=== PATIENT | female | born 1950 | race Caucasian/White ===

== ENCOUNTER 2023-09-11 09:03 | Outpatient (CLI) | payer MEDICARE, BC, SELFPAY | END 2023-09-11 09:04 | disposition home or self-care (01) | PROVIDERS: PCP Nurse Practitioner Family; Visit Provider Nurse Practitioner Family | DX: Z01.818 Encounter for other preprocedural examination (principal); E03.9 Hypothyroidism, unspecified; E78.5 Hyperlipidemia, unspecified | CPT/HCPCS: 80048; 80061; 84439; 84443 ==

== ENCOUNTER 2023-10-04 06:05 | Day surgery (SDC) | payer MEDICARE, BC, SELFPAY ==
[2023-10-04] VITALS (23 sets, daily range): BP systolic 84–153; BP diastolic 41–82; PULSE 42–72; RESP 12–18; TEMP 35.2–36.8; O2SAT 95–100; BMI 31.6
[2023-10-04] MEDS: LACTATED RINGERS 1000 ML 1,000 ML 100 ML IV (06:05)
[2023-10-04] MEDS: OXYCODONE (CR) 10 MG TAB.ER.12H PO (06:46)
[2023-10-04] MEDS: CELECOXIB 200 MG CAPSULE PO (06:46)
[2023-10-04] MEDS: ACETAMINOPHEN 500 MG TABLET 1000 MG PO ×3 (06:46→17:06)
[2023-10-04] MEDS: SODIUM CHLORIDE 0.9 % (FLUSH) 10 ML SYRINGE IVF (06:47)
[2023-10-04 06:59] LABS: INR 1.23 (0.91-1.10); Prothrombin Time 16.3 Seconds
[2023-10-04] MEDS: fentaNYL 100 MCG/2 ML inj IVP (07:14)
[2023-10-04] MEDS: MIDAZOLAM HCL 1 MG/ML inj IVP (07:14)
--- NOTE | 2023-10-04 07:24 | SUR.PREOP ---
TIME?OUT:?12 PT/RN/MDA?VERIFICATION?OF?SURGICAL?SITE Left Knee,?PROCEDURE Adductor Canal Block,?AND?CONSENT OBTAINED?PRIOR?TO?INVASIVE?PROCEDURE.
[2023-10-04] MEDS: CEFAZOLIN 2 GM INJ IVP (07:44)
[2023-10-04] MEDS: TRANEXAMIC ACID 100 MG/ML INJ 1000 MG IV (07:45)
--- NOTE | 2023-10-04 08:50 | CRLHL7_ITS ---
For Patients: As a result of the Cures Act, medical imaging exams and procedure reports are released immediately into your electronic medical record. You may view this report before your referring provider. If you have questions, please contact your health care provider. Indication: Left knee arthroplasty Technique: Left knee 2 view Findings: Hardware from a left knee arthroplasty is in satisfactory position. Bone alignment is normal. No sign of acute fracture. There are postoperative changes in the soft tissues. Dictated by Morteza Mccoy MD @ 10/05/2023 10:54:58 AM (Electronically Signed)
--- NOTE | 2023-10-04 08:52 | PM.ORPRC ---
Procedure Note Date of procedure: 10/04/23 Procedure: PREOPERATIVE DIAGNOSIS: Left knee osteoarthritis POSTOPERATIVE DIAGNOSIS: Left knee osteoarthritis NAME OF OPERATION: Left total knee arthroplasty SURGEON: Rick Bui MD CATH LAB: Chanell Hong PA-C ANESTHESIA: Spinal ESTIMATED BLOOD LOSS: 0 mL COMPLICATIONS: None SPECIMENS: None DRAINS: None PREOPERATIVE ANTIBIOTICS: Ancef 2 grams IMPLANTS: 1. J&J Attune # 5 posterior stabilized femur 2. # 4 fixed-bearing tibia 3. # 5 posterior stabilized, 12 mm fixed-bearing polyethylene 4. 35 patella INDICATIONS: The patient is a 73-year-old with a longstanding history of severe, unrelenting left knee pain secondary to end-stage (grade IV) left knee osteoarthritis. Despite appropriate nonoperative management, including activity modification, anti-inflammatories, [id number] pain medication, bracing, physical therapy, and injections they continue to have pain and disability. Operative intervention was offered. The risks, benefits and expected outcomes were discussed in detail. These included but were not limited to: Infection, bleeding, injury to blood vessel or nerve, venous thromboembolism. All questions were answered to their satisfaction. Use of an administrative sales assistant was necessary throughout the case for patient positioning and safety, soft tissue retraction, and closure. PROCEDURE: Spinal anesthesia was administered. The patient was placed supine on the operating table. The administrative sales assistant made sure the patient was positioned appropriately. The lower extremity was prepped and draped in the usual sterile fashion. The limb was exsanguinated with the [place] bandage. The pneumatic tourniquet was inflated to 300 mmHg. A standard anterior incision was made with the knee in flexion. Subcutaneous dissection was sharply taken through fascial layer #1. Full-thickness medial and lateral flaps were elevated. The administrative sales assistant retracted the soft tissues and protected them throughout the case. A standard medial parapatellar approach was made. The patella was everted. The infrapatellar fat pad was preserved. The menisci and cruciate ligaments were sharply d?brided. Marginal osteophytes were d?brided with the rongeur. The drill was used to penetrate the femoral canal. The canal was aspirated and irrigated with pulse lavage. The intramedullary femoral guide was placed for a 5-degree valgus cut, removing 10 mm off the distal femur. The saw was used to make the cut. Whites[place] line and the trans epicondylar axis were marked. The femoral sizing guide was pinned onto the distal femur. Three degrees of external rotation nicely parallels the transepicondylar axis. Pins were placed for posterior referencing. The four-in-one cutting guide was pinned onto the distal femur. The anterior, posterior, and chamfer cuts were made. The administrative sales assistant protected the collateral ligaments. The box cutting guide was pinned. The box cuts were made. The boxed trial was placed and was an excellent fit. Drill holes for the lugs were made. Attention was then turned to the proximal tibia. The extramedullary tibial guide was placed for a neutral varus/valgus cut with 5 degrees of posterior slope, removing 1 mm based off the medial tibial surface. The administrative sales assistant protected the collateral ligaments and the neurovascular bundle. The saw was used to make the cut. Trial components were placed. The knee was nicely balanced in both flexion and extension. The trial components were removed. The tray was placed in appropriate rotation, parallel to our tibial cutting pins. It was pinned by the administrative sales assistant and the drill and the punch were used. The tray was removed. The punch was used again. We placed a bone plug in the femoral canal. Attention was then turned to the patella. [place] patellar thickness was 21 mm. The lobster claw resection guide was used with the 7.5 mm tina. The saw was used to make the cut. Drill holes were made by the administrative sales assistant. The trial was placed and was an excellent fit. Cancellous surfaces were irrigated with pulse lavage and thoroughly dried by the administrative sales assistant. We cemented the tibial component, then the femoral component. We impacted the 12 mm polyethylene onto the tibial tray. The knee was brought into full extension. We then cemented the patellar component. Excessive cement was removed. The cement was allowed to harden. The knee was taken through a range of motion and was found to be nicely balanced in both flexion and extension. The patella tracks centrally. The administrative sales assistant did a three minute dilute Betadine solution soak. The administrative sales assistant irrigated the wound with 3 liters of normal saline via pulse lavage. The administrative sales assistant reapproximated the extensor mechanism with #1 Vicryl in an interrupted [id number] fashion. The administrative sales assistant then ran the extensor mechanism with a #1 PDO Stratafix. The administrative sales assistant closed the subcutaneous tissues with a 3-0 Stratafix and the skin with a running 3-0 Stratafix in a subcuticular fashion. Glue was used to seal the skin. The administrative sales assistant placed a dry dressing, RENETTA stocking, and Polar Care. Sponge and needle counts were correct x2. The patient tolerated the procedure well. There were no apparent complications. They were carefully transferred to the hospital bed and taken to the postanesthesia care unit in satisfactory condition. PLAN: The patient will be mobilized with physical therapy. Her usual dose of Coumadin can be restarted. They will be discharged to home once medically appropriate.
[2023-10-04] MEDS: ePHEDrine sulfate 5 MG/ML inj IVP (09:40)
--- NOTE | 2023-10-04 09:42 | W.ANESCHARGE ---
Anesthesia Charges Start Date/Time Anesthesia Start Date: 10/04/23 Anesthesia Start Time: 07:38 Stop Date/Time Anesthesia Stop Date: 10/04/23 Anesthesia Stop Time: 09:40
[2023-10-04] MEDS: LACTATED RINGERS 1000 ML 1,000 ML 35 ML IV (09:47)
--- NOTE | 2023-10-04 10:04 | W.ANESCHARGE ---
Anesthesia Charges Start Date/Time Anesthesia Start Date: 10/04/23 Anesthesia Start Time: 07:38 Stop Date/Time Anesthesia Stop Date: 10/04/23 Anesthesia Stop Time: 09:40 Summary Extremes of Age - Over 70 or under 1: MDA
--- NOTE | 2023-10-04 10:05 | P.NB_ITS ---
Nerve Block Nerve Block Time Seen by Provider: 07:20 Date Seen: 10/04/23 Type of block requested by surgeon for post-operative analgesia: adductor canal Side: left Time out performed: Yes Verification of patient name: Yes Verification of date of : Yes Site marking: site marked Name of person performing procedure: Prieto Continuous monitoring Was continuous monitoring of O2 sat, B/P, space technologist, recorded every 15 minutes?: Yes Procedure Checklist: sterile prep, needles and gloves Ultrasound guided. Images saved: Yes Medications given in 5ml increments after negative aspiration: Ropivicaine %: 0.5 mL: 20 Needle gauge: 20 Decadron (mg): 10 Precedex (mcg): 25 Patient tolerated procedure well: Yes Additional comments: Needle noted adjacent to nerve Block Charges Block Charge (with Pro Fee): Femoral Nerve Use of Ultrasound Machine for Block: Yes- US Guidance/pain block
--- NOTE | 2023-10-04 10:06 | P.NB_ITS ---
Nerve Block Nerve Block Time Seen by Provider: 07:20 Date Seen: 10/04/23 Type of block requested by surgeon for post-operative analgesia: geniculars Side: left Time out performed: Yes Verification of patient name: Yes Verification of date of : Yes Site marking: site marked Name of person performing procedure: Prieto Continuous monitoring Was continuous monitoring of O2 sat, B/P, staple fiber washer, recorded every 15 minutes?: Yes Procedure Checklist: sterile prep, needles and gloves Medications given in 5ml increments after negative aspiration: Ropivicaine %: 0.5 mL: 9 Needle gauge: 25 Patient tolerated procedure well: Yes Block Charges Block Charge (with Pro Fee): Genicular Nerve Block Use of Ultrasound Machine for Block: No
--- NOTE | 2023-10-04 11:33 | PM.IMCN1 ---
Date of Consult Patient: [facility] Patient Consult date: 10/04/23 Requesting Physician: Orthopedics Primary Care Provider: Sowmya Campos CNP Consult Narrative Narrative: Birdie Canales is a 73 year old female admitted to the hospital for left total knee arthroplasty. Procedures performed today by Dr. Bui. No operative complications. Postoperatively she reports doing well. No significant knee pain. Her spinal anesthesia has worn off though her regional femoral block is still effective. She has no nausea. No lightheadedness. She reports being well recently with no recent illness. No concerns at her preop physical other than anticoagulation. She has a history of factor 5 Leiden mutation. By her history it sounds like she might have homozygous condition for this. It runs in her family and she thinks 3 of her siblings are heterozygous and she and a brother are homozygous. Both of them have had previous DVTs. She has had 2 previous unprovoked DVTs. She took her last dose of warfarin 5 days ago on Sunday. She has been bridged with Lovenox 80 mg subQ twice daily. The last dose of that was yesterday morning. Her normal dose of warfarin is 7.5 mg 4 days a week and 3.75 mg 3 days a week. She has also had a recent change in her levothyroxine dose. Previously was on 75 mcg daily. TSH was 9.2 with a free T4 of 1.5. Her levothyroxine was increased to 88 mcg daily about 3 weeks ago. Nurse's note low blood pressure and bradycardia. Pulses in the 40s. It has been in the 40s all morning. Preoperatively she had an EKG which showed sinus bradycardia with a pulse of 57. Review of Systems Narrative: Patient reports feeling well except as noted above. She has no other concerns. [facility] Medical History (Updated 10/04/23 @ 12:15 by Ji Escobar MD) Osteoarthritis of left knee ?M17.12 - Unilateral primary osteoarthritis, left knee (ICD-10) Factor 5 Leiden mutation, heterozygous ?D68.51 - Activated protein C resistance (ICD-10) Monitoring for anticoagulant use ?Z51.81 - Encounter for therapeutic drug level monitoring (ICD-10) ?Z79.01 - terminal worker (current) use of anticoagulants (ICD-10) Deep vein thrombophlebitis of right leg ?I80.201 - Phlebitis and thrombophlebitis of unspecified deep vessels of right lower extremity (ICD-10) Hyperlipidemia ?E78.5 - Hyperlipidemia, unspecified (ICD-10) Hypothyroidism ?E03.9 - Hypothyroidism, unspecified (ICD-10) Surgical History (Updated 10/04/23 @ 12:13 by Ji Escobar MD) History of total knee arthroplasty (04/18/12) ?Z96.659 - Presence of unspecified artificial knee joint (ICD-10) Social History (Updated 10/04/23 @ 12:11 by Ji Escobar MD) Narrative: She lives in [place] with her . They live in a town home where she has 1 small step to get into the house and then lives on 1 level. What is your current living situation?: I presently have a place to live Problems where you live: no known problems In the past 12 months, utilities in danger of being shut off: no In past 12 months, lack of transportation kept you from medical appts, meetings, work, or getting things needed for daily living: no How hard is it for you to pay for the very basics like food, housing, medical care, and heating: not very hard In the past 12 mos, have been you worried that your food would run out before you had money to buy more?: never true In the past 12 mos, the food you bought just didn't last and you didn't have money to buy more?: never true Smoking Status: Never smoker How often do you have a drink containing alcohol: 4 or more times a week Alcohol type: wine How many standard drinks containing alcohol do you have on a typical day: 1 or 2 How often do you have six or more drinks on one occasion: Daily or almost daily AUDIT-C Alcohol total score: 8 Non-prescribed substance use: denies use Caffeine: No How often does anyone, including family, friends and others, physically hurt you: never How often does anyone, including family, friends and others, insult or talk down to you: never How often does anyone, including family, friends and others, threaten you with harm: never How often does anyone, including family, friends and others, scream or curse at you: never Little interest or pleasure in doing things: not at all Feeling down, depressed, or hopeless: not at all Meds Home Medications and Allergies Home Medications Medication Instructions Recorded Confirmed Type cholecalciferol (vitamin D3) 50 50 mcg PO QDAY 04/17/23 10/04/23 History mcg (2,000 unit) capsule metronidazole 0.75 % topical gel 1 applic topical BID 04/17/23 10/04/23 History warfarin 7.5 mg tablet 3.75 - 7.5 mg PO DAILY 10/04/23 10/04/23 History Allergies Allergy/AdvReac Type Severity Reaction Status Date / Time Sulfa (Sulfonamide Allergy Mild Rash Verified 10/04/23 06:24 Antibiotics) Exam Narrative: Exam Narrative: She is alert pleasant and in no distress. Speech is normal. Oropharynx with small airway. Neck is supple without mass or adenopathy. Respirations are clear to auscultation. Cardiovascular: S1, S2, regular bradycardia. No murmur gallop or rub. Abdomen: Bowel sounds are present. Abdomen is soft without tenderness or mass. Lower extremities bilaterally without edema and intact pulses, sensation, motion. Const: Vital Signs, click to edit/add: Vital Signs - 24 hr 10/04/23 06:32 10/04/23 07:14 10/04/23 07:20 Temperature 98.2 F Pulse Rate 58 L 48 L 49 L Respiratory Rate 16 16 16 Blood Pressure 147/79 H 153/68 H 151/76 H Pulse Oximetry 98 98 97 Oxygen Delivery Me thod Room Air Nasal Cannula Nasal Cannula Oxygen Flow Rate 2 2 10/04/23 07:30 10/04/23 07:30 10/04/23 09:35 Temperature 97.3 F L Pulse Rate 47 L 47 L 50 L Respiratory Rate 16 16 12 Blood Pressure 122/65 97/54 L 85/52 L Pulse Oximetry 97 97 96 Oxygen Delivery Me thod Nasal Cannula Nasal Cannula Room Air Oxygen Flow Rate 2 2 10/04/23 09:40 10/04/23 09:45 10/04/23 09:50 Temperature Pulse Rate 49 L 47 L 46 L Respiratory Rate 14 12 12 Blood Pressure 84/61 L 91/62 95/71 Pulse Oximetry 96 99 95 Oxygen Delivery Me thod Oxygen Flow Rate 10/04/23 09:55 10/04/23 10:00 10/04/23 10:05 Temperature 97.3 F L Pulse Rate 45 L 50 L 47 L Respiratory Rate 12 14 14 Blood Pressure 93/74 100/58 L 97/57 L Pulse Oximetry 97 100 98 Oxygen Delivery Me thod Room Air Oxygen Flow Rate Documenting provider has reviewed patient's vital signs: yes Assessment and Plan Assessment and plan (1) S/P knee replacement: Problem comment: Left total knee arthroplasty by Dr. Bui without complications Status: Acute (2) Factor 5 Leiden mutation, heterozygous: Problem comment: May be homozygous. Previous history of 2 unprovoked clots. Discuss postoperative VTE prophylaxis with surgery. Status: Acute (3) Monitoring for anticoagulant use: Problem comment: Restart warfarin 7.5 mg daily Status: Acute (4) Hypothyroidism: Problem comment: Check TSH in 3 weeks Status: Acute (5) Sinus bradycardia: Problem comment: Asymptomatic. Monitor Status: Acute (6) Postoperative hypotension: Problem comment: Resolved after 500 mL bolus of LR Status: Acute Plan Continue in hospital for ongoing monitoring of vital signs, bleeding, routine physical therapy and pain management and initiation of appropriate anticoagulation Total time spent today is 45 minutes, 30 minutes in coordination of care and discussing with patient and other providers postoperative care and anticoagulation
[2023-10-04] MEDS: OXYCODONE 5 MG TABLET PO ×3 (11:44→23:05)
[2023-10-04] MEDS: LACTATED RINGERS 1000 ML 1,000 ML 75 ML IV (12:12)
[2023-10-04] MEDS: CEFAZOLIN 2 GM in 0.9 % SODIUM CHLORIDE Mini-bag 100 ML IVPB ×2 (13:38→23:03)
[2023-10-04] MEDS: ONDANSETRON 2 MG/ML inj 4 MG IVP (15:49)
[2023-10-04] MEDS: WARFARIN 2.5 MG TABLET 7.5 MG PO (17:05)
--- NOTE | 2023-10-04 20:03 | PC.NURSE ---
shift note: pt up 1/walker with steady gait. pt medicated x1 for pain to lt knee. cryo cuff in place. PP+ bilat and cap refill intact. vss stable.
[2023-10-04] MEDS: SENNOSIDES 1 TAB TABLET 2 TAB PO (23:04)
[2023-10-05] MEDS: ACETAMINOPHEN 500 MG TABLET 1000 MG PO ×2 (00:26→06:50)
[2023-10-05] MEDS: LACTATED RINGERS 1000 ML 1,000 ML 75 ML IV (01:43)
[2023-10-05 03:00] VITALS: BP 112/73; PULSE 50; RESP 18; TEMP 36.1; O2SAT 96
[2023-10-05] MEDS: OXYCODONE 5 MG TABLET PO ×2 (05:58→08:12)
[2023-10-05 06:49] LABS: Hematocrit 40.1 % (33.0-51.0); Hemoglobin* 13.2 gm/dL (12.0-16.0); Immature Granulocytes Abs Auto 0.02 K/uL (0.00-0.30); Immature Granulocytes Pct Auto 0.2 %; Lymphocytes Percent Auto 14.5 % (20-44); Mean Corpuscular HGB Conc 33 gm/dL (32-36); Mean Corpuscular Hemoglobin 29 pg (26-34); Mean Corpuscular Volume 88 fL (80-100); Neutrophils Percent Auto 75.3 % (42.0-72.0); Platelet Count* 172 K/uL (140-440); RDW Coefficient of Variation % 13.1 % (11.5-15.5); Red Blood Count 4.55 m/uL (4.00-5.20); White Blood Count* 8.91 K/uL (4.50-11.00)
[2023-10-05 06:56] LABS: Slide Review Reflex No
[2023-10-05 07:00] VITALS: BP 127/84; PULSE 50; RESP 18; TEMP 36.6; O2SAT 99
[2023-10-05 07:03] LABS: INR 1.13 (0.91-1.10); Prothrombin Time 15.2 Seconds
[2023-10-05 07:07] LABS: Potassium* 4.5 mmol/L (3.6-5.1); Sodium* 132 mmol/L (135-149)
[2023-10-05 07:10] LABS: Blood Urea Nitrogen* 14 mg/dL (7-30); Creatinine* 0.6 mg/dL (0.5-1.5); Est. Creatinine Clearance* 43.91; Estimated Glomerular Filt Rate 95 ml/min
--- NOTE | 2023-10-05 07:14 | PC.NURSE ---
Patient pleasant, alert and oriented. Ambulates with walker, gait belt and assist of one. Rated left thigh and knee pain 3-6/10. PRN Oxycodone and scheduled Tylenol given. Dressing clean, dry and intact. IV saline locked. Hematoma noted to left forearm d/t prior IV attempt. Warm packs applied. PA updated.
[2023-10-05] MEDS: SENNOSIDES 1 TAB TABLET 2 TAB PO (08:11)
--- NOTE | 2023-10-05 08:45 | PM.ORPN ---
Subjective Subjective Time Seen by Provider: 08:45 Date Seen: 10/05/23 Principal diagnosis: Left knee replacement Interval history: Angela is comfortable in bed this morning. Her Baldev will be assisting her at home. She has a son that is a physical therapist, however he does not live in the area. Ortho Exam Narrative Exam Narrative: Alert and oriented x3. Patient is in no acute distress. Converses without labored breathing. Hearing is grossly intact. Ambulates with a walker. Examination of the left knee shows mild soft tissue edema. Mild effusion. No ecchymosis about the knee. Quad strength 5/5. No erythema or warmth or sign of infection. Bilateral calves are soft and nontender. CMS is intact left lower extremity. Bruising of her left forearm from blood draws and on her abdomen. Const Vital Signs, click to edit/add: Vital Signs - 24 hr 10/04/23 09:35 10/04/23 09:40 10/04/23 09:45 Temperature 97.3 F L Pulse Rate 50 L 49 L 47 L Pulse Rate [Bilateral Pulse Oximeter] Respiratory Rate 12 14 12 Blood Pressure 85/52 L 84/61 L 91/62 Blood Pressure [Left Arm] Pulse Oximetry 96 96 99 Oxygen Delivery Method Room Air Oxygen Flow Rate 10/04/23 09:50 10/04/23 09:55 10/04/23 10:00 Temperature Pulse Rate 46 L 45 L 50 L Pulse Rate [Bilateral Pulse Oximeter] Respiratory Rate 12 12 14 Blood Pressure 95/71 93/74 100/58 L Blood Pressure [Left Arm] Pulse Oximetry 95 97 100 Oxygen Delivery Method Oxygen Flow Rate 10/04/23 10:05 10/04/23 10:11 10/04/23 10:15 Temperature 97.3 F L 95.3 F L Pulse Rate 47 L 45 L Pulse Rate [Bilateral Pulse Oximeter] 44 L Respiratory Rate 14 16 16 Blood Pressure 97/57 L Blood Pressure [Left Arm] 94/61 93/56 L Pulse Oximetry 98 98 Oxygen Delivery Method Room Air Room Air Oxygen Flow Rate 10/04/23 10:30 10/04/23 10:45 10/04/23 11:00 Temperature 96.4 F L 96.4 F L Pulse Rate Pulse Rate [Bilateral Pulse Oximeter] 42 L 45 L 44 L Respiratory Rate 18 16 18 Blood Pressure Blood Pressure [Left Arm] 88/59 L 115/64 98/41 L Pulse Oximetry 98 99 97 Oxygen Delivery Method Room Air Room Air Room Air Oxygen Flow Rate 10/04/23 11:30 10/04/23 12:00 10/04/23 13:00 Temperature 96.6 F L 97.0 F L Pulse Rate Pulse Rate [Bilateral Pulse Oximeter] 47 L 46 L 46 L Respiratory Rate 16 16 16 Blood Pressure Blood Pressure [Left Arm] 100/78 117/82 127/74 Pulse Oximetry 97 98 98 Oxygen Delivery Method Room Air Room Air Room Air Oxygen Flow Rate 10/04/23 14:00 10/04/23 15:00 10/04/23 15:00 Temperature 97.4 F L 98.2 F 98.2 F Pulse Rate Pulse Rate [Bilateral Pulse Oximeter] 44 L 72 72 Respiratory Rate 18 18 18 Blood Pressure Blood Pressure [Left Arm] 126/67 112/68 112/68 Pulse Oximetry 99 98 98 Oxygen Delivery Method Room Air Room Air Oxygen Flow Rate 2 10/04/23 19:00 10/04/23 23:00 10/05/23 03:00 Temperature 97.0 F L 97.3 F L 97.0 F L Pulse Rate Pulse Rate [Bilateral Pulse Oximeter] 46 L 47 L 50 L Respiratory Rate 18 18 18 Blood Pressure Blood Pressure [Left Arm] 114/71 109/64 112/73 Pulse Oximetry 96 96 96 Oxygen Delivery Method Room Air Room Air Room Air Oxygen Flow Rate Assessment and Plan Assessment and plan (1) Status post left knee replacement: Problem details: 10/04/2023 Status: Acute Assessment and Plan: Plan for discharge is today to home if they meet discharge criteria. DVT prophylaxis includes Lovenox 40 mg subQ for 4 days along with warfarin, Tera stockings x1 month may remove for 1 hr per day, frequent ambulation. 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 Recheck INR Sunday, family doctor to monitor. Remove dressing in 1 week. Observe wound and phone Orthopedics with any questions or concerns Return to clinic in 1 week for a wound check Return to clinic in 6 weeks with surgeon Minimize narcotic use. Wean off and discontinue soon as possible. Activities as tolerated. No strenuous activity. Outpatient physical therapy as scheduled. Ice and elevate the operative extremity. No restriction on ice.
--- NOTE | 2023-10-05 11:23 | PM.DS1 ---
DS: Providers Provider Date Seen: 10/05/23 Primary care physician: Sowmya Campos CNP Attending Physician on discharge: Rick Bui MD Date of Discharge: 10/05/23 DS: Diagnosis Discharge Diagnosis (1) Factor 5 Leiden mutation, heterozygous: Status: Acute Problem details: May be homozygous. Previous history of 2 unprovoked clots. Discuss postoperative VTE prophylaxis with surgery. Discussed with Dr. Bui a postoperative DVT prophylaxis plan. Will use enoxaparin 40 mg subq daily pending therapeutic INR. She has 80 mg syringes. Will give herself half a syringe or 40 mg daily Check INR on SundayOctober 08. Continue warfarin 7.5 mg daily Sunday, Sunday, Sunday. Additional warfarin dosing depending on INR on Sunday. (2) Sinus bradycardia: Status: Acute Problem details: Asymptomatic. No indication for further evaluation if asymptomatic (3) Status post left knee replacement: Status: Acute Problem details: 10/04/2023 doing well postoperatively DS: Summary Hospital Course Hospital Course: 73-year-old female admitted to the hospital for left knee arthroplasty. Procedures performed by Dr. Bui without complications. Postoperatively she is doing well. I discussed with patient and orthopedic providers a plan of care going forward for VTE prophylaxis. She reports 2 previous unprovoked DVTs and factor 5 Leiden mutation, possibly homozygous. On that basis she is at increased risk of recurrent DVT. I would recommend enoxaparin prophylaxis until her INR is therapeutic. She will take enoxaparin 40 mg subcutaneously daily for the next 3 days pending INR on Sunday. She will also take warfarin 7.5 mg daily pending INR on Sunday. Contact primary care provider, Sowmya Campos CNP on Sunday with results of INR. Status at Discharge Functional status at discharge: uses cane/walker Overall status at discharge: patient is progressing back to baseline Time Spent with Patient Time attestation: Total time spent providing and/or coordinating discharge services: Time spent: Less than 30 minutes Exam Narrative: Exam Narrative: She is alert and appears in no distress. She is tolerating therapy fairly well. Breathing is unlabored. No significant edema. Const: Vital Signs, click to edit/add: Vital Signs - 24 hr 10/04/23 11:30 10/04/23 12:00 10/04/23 13:00 Temperature 96.6 F L 97.0 F L Pulse Rate [Bilate ral Pulse Oximeter ] 47 L 46 L 46 L Respiratory Rate 16 16 16 Blood Pressure [Le ft Arm] 100/78 117/82 127/74 Pulse Oximetry 97 98 98 Oxygen Delivery Me thod Room Air Room Air Room Air Oxygen Flow Rate 10/04/23 14:00 10/04/23 15:00 10/04/23 15:00 Temperature 97.4 F L 98.2 F 98.2 F Pulse Rate [Bilate ral Pulse Oximeter ] 44 L 72 72 Respiratory Rate 18 18 18 Blood Pressure [Le ft Arm] 126/67 112/68 112/68 Pulse Oximetry 99 98 98 Oxygen Delivery Me thod Room Air Room Air Oxygen Flow Rate 2 10/04/23 19:00 10/04/23 23:00 10/05/23 03:00 Temperature 97.0 F L 97.3 F L 97.0 F L Pulse Rate [Bilate ral Pulse Oximeter ] 46 L 47 L 50 L Respiratory Rate 18 18 18 Blood Pressure [Le ft Arm] 114/71 109/64 112/73 Pulse Oximetry 96 96 96 Oxygen Delivery Me thod Room Air Room Air Room Air Oxygen Flow Rate 10/05/23 07:00 Temperature 97.8 F Pulse Rate [Bilate ral Pulse Oximeter ] 50 L Respiratory Rate 18 Blood Pressure [Le ft Arm] 127/84 Pulse Oximetry 99 Oxygen Delivery Me thod Room Air Oxygen Flow Rate Documenting provider has reviewed patient's vital signs: yes DS: Data Data Completed and Pending Labs on day of discharge: Labs from last 24 hours 10/05/23 06:13 WBC 8.91 RBC 4.55 Hgb 13.2 Hct 40.1 MCV 88 MCH 29 MCHC 33 RDW Coeff of Aditya 13.1 Plt Count 172 Neut % (Auto) 75.3 H Lymph % (Auto) 14.5 L [place] % (Auto) 10.0 Eos % (Auto) 0.0 Baso % (Auto) 0.0 Neut # (Auto) 6.70 Lymph # (Auto) 1.30 [place] # (Auto) 0.90 Eos # (Auto) 0.00 Baso # (Auto) 0.00 Abs Immat Gran (auto) 0.02 Imm/Tot Granulo (auto) 0.2 INR 1.13 H Sodium 132 L Potassium 4.5 BUN 14 Creatinine 0.6 Estimated Creat Clear 43.91 Estimated GFR 95 Discharge Plan Discharge Disposition: Home, Self-Care Discharging Surgeon: Rick Bui Follow-Up Appointment: 1 week Prescriptions: New sennosides [Senna Lax] 8.6 mg Tablet 17.2 mg PO BID PRN (Reason: constipation) Qty: 100 0RF acetaminophen 500 mg capsule 500 - 1,000 mg PO Q6H MDD 4000mg per day PRN (Reason: pain) Qty: 100 0RF oxycodone 5 mg Tablet 2.5 - 5 mg PO Q4-6H MDD 6 tabs per day PRN (Reason: Pain) Qty: 42 0RF Rx Instructions: Minimize. Discontinue as soon as possible enoxaparin 80 mg/0.8 mL syringe 40 mg subcut DAILY Qty: 1 0RF Continued metronidazole 0.75 % gel 1 applic topical BID cholecalciferol (vitamin D3) 50 mcg (2,000 unit) capsule 50 mcg PO QDAY simvastatin 10 mg tablet 10 mg PO QPM Qty: 90 3RF levothyroxine 88 mcg tablet 88 mcg PO DAILY Qty: 90 0RF Rx Instructions: patient Changed warfarin 7.5 mg tablet 7.5 mg PO DAILY Qty: 1 0RF Protocol: Dose Management Condition: Sunday Dose/Route: 7.5 mg Instruction: 1 x 7.5 mg tablet Condition: Sunday Dose/Route: 3.75 mg Instruction: 0.5 x 7.5 mg tablets Condition: Sunday Dose/Route: 7.5 mg Instruction: 1 x 7.5 mg tablet Condition: Sunday Dose/Route: 7.5 mg Instruction: 1 x 7.5 mg tablet Condition: Dose/Route: 3.75 mg Instruction: 0.5 x 7.5 mg tablets Condition: Sunday Dose/Route: 7.5 mg Instruction: 1 x 7.5 mg tablet Condition: Sunday Dose/Route: 7.5 mg Instruction: 1 x 7.5 mg tablet Protocol Text: Adjustment Start Date: Sunday08/08/23 INR Value: 2.8 INR Date: 08/07/23 Recheck Date: 09/05/23 Rx Instructions: Take 7.5 mg daily on Sunday, Sunday, Sunday, October 1,2 and 3. Get INR checked on SundayOctober 08. Adjust warfarin dose based on INR. Discontinued enoxaparin [Lovenox] 80 mg/0.8 mL syringe 80 mg subcut Q12H Qty: 8 0RF Activity Level: Activity as Tolerated and No strenuous activity Activity Detail: For anticoagulation in the next 4 days: Take warfarin 7.5 mg every day, Sunday, Sunday, Sunday. Warfarin dose on Sunday should be based on an INR checked on Sunday at the hospital Take Lovenox/enoxaparin 40 mg injected daily in the evening. Use your remaining Lovenox 80 mg syringes and inject half the syringe or 40 mg each day, Sunday, Sunday. You may not need to do a dose on Sunday depending on your INR. Keep dressing on for 1 week. Dressing is waterproof. May shower. Surgical glue covers the wound. Attend outpatient physical therapy if scheduled. Ice and elevate operative extremity without restriction. Swelling and bruising will worsen within the first week. When swelling occurs, elevate the extremity above heart level several times a day and gently massage/pull soft tissue swelling toward hip. This allows gravity to assist in eliminating the swelling/edema. Wear compression stockings for 1 month post surgery to assist in preventing blood clots and to minimize swelling. May remove for 1 hour per day. Ambulate every hour throughout the day. If you drive, Do not drive while taking narcotic pain medication. Do not drink alcohol while taking narcotic pain medication. May drive when safe to do so and have full function of the extremities, this may take 6 weeks or more. Notify Orthopedics with any questions or concerns. ([phone]) Discharge Diet: Regular Patient Instructions: Aspirin (By mouth), Oxycodone, Rapid Release (By mouth), Senna (By mouth), Surgical Site Infections (DC), Knee Replacement (DC) Additional Instructions: Coordinate and Schedule INR Sunday in [place]. Inform patient where she must go for this, whether clinic or hospital. Family doctor to monitor and dose warfarin. Be sure her family doctor is aware of this and aware of her INR drawn on Sunday. Forms: Work/School Release Follow-up: Sowmya Campos CNP [Primary Care Provider] - (INR on SundayOctober 08 at [facility]. Call results to Sowmya Campos CNP) Angela Boswell PA-C [[employer]] - 10/10/23 9:30 am ([facility] [place] Location) Discharge Orders: Discharge Order (Routine); Ordered 10/05/23 Ordered By: Angela Boswell
--- NOTE | 2023-10-05 11:41 | PC.NURSE ---
Discharge: Patient pleasant and cooperative. Vitals stable and WNL. IV removed with catheter intact. Pain managed with PRN medication and cryocuff. Dressing over left knee dry and intact. Worked with PT/OT today. Up with SBA, walker and gait belt. Discharge instructions given to patient and , reviewed follow up and new medications. Patient discharged via wheelchair @ 1038, home with .
== END 2023-10-05 10:38 | disposition home or self-care (01) ==
LOC: OR 06:07 → MEDSURG 06:09
PROVIDERS: Anesthesiology; PCP Nurse Practitioner Family; Visit Provider Orthopaedic Surgery
PROC: (CPT 27447; principal; 2023-10-04 07:30)
DX: M17.12 Unilateral primary osteoarthritis, left knee (principal); G89.18 Other acute postprocedural pain; I95.81 Postprocedural hypotension; R00.1 Bradycardia, unspecified; D68.51 Activated protein C resistance; Z86.718 Personal history of other venous thrombosis and embolism; Z79.01 Long term (current) use of anticoagulants; E03.9 Hypothyroidism, unspecified
CPT/HCPCS: 27447; 01402; 36415; 64447; 64454; 73560; 76942; 82565; 84132; 84295; 84520; 85025; 85610; 97110; 97116; 97161; 97165; 97530; 99100; A9270; C1776; J0690; J1100; J2250; J2405; J2704; J2795; J3010; J7120

== ENCOUNTER 2023-10-08 09:49 | Outpatient (CLI) | payer MEDICARE, BC, SELFPAY ==
[2023-10-08 10:43] LABS: INR 1.89 (0.91-1.10)
== END 2023-10-08 09:50 | disposition home or self-care (01) ==
PROVIDERS: PCP Nurse Practitioner Family; Visit Provider Family Medicine
DX: D68.51 Activated protein C resistance (principal); Z79.01 Long term (current) use of anticoagulants
CPT/HCPCS: 36415; 85610

== ENCOUNTER 2023-12-18 11:11 | Outpatient (CLI) | payer MEDICARE, BC, SELFPAY ==
--- OUTSIDE RECORDS SUMMARY | 2023-12-18 11:13 | XMS_ITS | Clinical Summary ---
Author Name Unknown Organization [email or web address] Address [place], [place] [address] Care Team Providers Care Senior Civil Engineer Name Role Phone Beni Morales MD Unavailable [phone] Allergies Active Allergy Reactions Criticality Noted Date Comments Sulfamethoxazole-Trimethoprim Rash 2008 Medications Medication Sig Dispensed Refills Start Date End Date Status triamcinolone 0.025% topical (ARISTOCORT) 0.025 % creamIndications:Rash Apply topically to affected area(s) 2 times daily. Use for 5-10 days as needed for flares. 80 g 0 10/18/2020 Active cholecalciferol (Vitamin D-3) 2,000 unit capsule Take 1 Capsule (2,000 units) by mouth once daily. 0 07/28/2021 Active simvastatin (ZOCOR) 10 mg tabletIndications:Hype rlipidemia, unspecified hyperlipidemia type Take 1 Tablet (10 mg) by mouth at bedtime. Generic equivalent please 93 tablet. 3 08/10/2022 Active calcium carbonate (Calcium 600) 600 mg calcium (1,500 mg) tablet Take 1 Tablet (600 mg) by mouth two times daily with meals. 0 10/02/2022 Active warfarin (COUMADIN) 7.5 mg tabletIndications:Deep vein thrombophlebitis of right leg (HC),Anticoagulation monitoring, INR range 2-3,Factor 5 Leiden mutation, heterozygous (HC) Take by mouth 3.75 mg (7.5 mg x 0.5) every Mon; 7.5 mg (7.5 mg x 1) all other days in the evening OR as directed 90 Tablet 0 02/21/2023 Active levothyroxine (SYNTHROID) 75 mcg tabletIndications:Hypo thyroidism, unspecified type TAKE 1 TABLET(75 MCG) BY MOUTH BEFORE BREAKFAST 90 Tablet 1 05/11/2023 Active Active Problems Problem Noted Date Diagnosed Date Osteoarthritis of left knee 08/14/2022 Obesity (BMI 30.0-34.9) 03/23/2017 Factor 5 Leiden mutation, heterozygous 2 Overview: DVT x 2, most recently 2009 Hemtatology consult 2010 Osteopenia of multiple sites 06/23/2011 Overview: DEXA 2021 osteopenia Deep vein thrombophlebitis of right leg 03/30/20 10 Overview: Factor V leiden heterozygous DVT x 2, most recently 2009 Hemtatology consult 2010 Other and unspecified hyperlipidemia 07/12/2007 healthcare maintenance 06/04/2007 Overview: Colonoscopy 05/11 - repeat in 10 years Colonoscopy 09/2017 normal repeat in 10 years Unspecified hypothyroidism 05/30/2007 Resolved Problems Problem Noted Date Diagnosed Date Resolved Date Anticoagulation monitoring, INR range 2-3 04/15/2011 06/20/2023 Immunizations Name Administration Dates Next Due AMB INFLUENZA IIV3 (AGE 65+ YRS) PF (Flu Clinic Only) 09/10/2018 AMB Influenza, IIV3 (Age >=3 years)(Flu Clinic Only) 08/16/2011 Amb Influenza, Inactivated A IIV4 (Age 65+ Years) Preserv Free 08/18/2020 Influenza, High-dose Inactivated 07/24/2016 Influenza, IIV3 (Age >=3 years) 08/27/20 13,08/16/2011,08/11/2010,2008,10/03/2007 Influenza, IIV4 07/30/2015,07/28/2014 Influenza, Inactivated AIIV4 (Age 65+ Years) Preserv Free 08/10/2022 Influenza, Inactivated IIV3 (Age 65+ Years) Preserv Free 07/17/2019,09/07/2017 Pneumococcal Poly,23-Valent (Pneumovax) 03/22/2017 Pneumococcal conj 13-Valent (Prevnar 13) 02/28/2016 Tdap 02/28/2017,11/02/2008 Zoster (Shingrix-RZV, recombinant) 04/03,04/03/2019,01/05/2019,2018 Zoster (Zostavax-ZVL, live) 01/26/2015 Family History Medical History Relation Name Comments Hypertension Father Other Father Dementia/alzhei mers Cancer-colon Maternal Grandmother Heart Disease Paternal Grandfather Cancer-breast No Family History Relation Name Status Comments Brother 1 Alive Brother 2 Alive Daughter Alive Adopted Father Alive Maternal Grandmother Mother Alive Paternal Grandfather Sister 1 Alive Sister 2 Alive Son 1 Alive Son 2 Alive Social History Tobacco Use Types Packs/Day Years Used Date Smoking Tobacco: Never Smokeless Tobacco: Never Tobacco Cessation:Counseling Given: Yes Alcohol Use Standard Drinks/Week Comments Yes 0 (1 standard drink = 0.6 oz pur e alcohol) occasional wine PHQ-2 Answer Date Recorded PHQ-2 TOTAL SCORE 0 08/10/2022 Social Connections Answer Date Recorded Frequency of Communication with Friends and Fami ly Not on file 08/13/2023 Financial Resource Strain Answer Date R ecorded Difficulty of Paying Living Expenses 3 08/09/2022 Difficulty of Paying Living Expenses Not on file 08/09/2022 Food Insecurity Answer Date Recorded Worried About Running Out of Food in the Last Ye ar 1 08/09/2022 Transportation Needs Answer Date Record ed Lack of Transportation (Medical) 1 08/09/2022 Housing Stability Answer Date Recorded Unable to Pay for Housing in the Last Year 1 08/09/2022 Sex and Gender Information Value Date Recorded Sex Assigned at Not on file Gender Identity Not on file Sexual Orientation Not on file Obstetrics History Para Term AB IAB SAB Ectopic Multiple Livin g Live Births 2 2 2 0 0 0 0 0 0 2 Date Outcome GA Total Labor Labor/2nd/3rd Weight Sex Delivery Anes PTL Tonya A1 A5 Name Cl in Term Term Last Filed Vital Signs Vital Sign Reading Time Taken Comments Blood Pressure 136/84 08/10/2022 3:04 PM CDT Pulse 71 08/10/2022 3:04 PM CDT Temperature 36.9 ??C (98.4 ??F) 11/13/2019 1:55 PM CS T Respiratory Rate - - Oxygen Saturation 98% 08/10/2022 3:04 PM CDT Inhaled Oxygen Concentration - - Weight 81.9 kg (180 lb 9.6 oz) 08/10/2022 3:04 P M CDT Height 163.6 cm (5' 4.41) 08/10/2022 3:04 PM CD T Body Mass Index 30.61 08/10/2022 3:04 PM CDT Plan of Treatment Health Maintenance Due Date Last Done Comments COVID-19 vaccine series ( season) 2023 09/14/2021, 02/03/2021, 01/06/2021 Influenza for age 65+ 07/06/2023 08/10/2022 , 08/18/2020, 07/17/2019, Additional history exists BMI (ht and wt on same day) for age 18+ 08/10/2023 08/10/2022, 07/28/2021, 06/16/2020, Additional history exists Depression screening for age 12+ 08/10/2023 08/10/2022, 07/28/2021, 06/16/2020, Additional history exists Medicare Wellness for age 65+ 08/11/2023, 07/28/2021, 06/16/2020, Additional history exists Mammogram for age 45-75 09/29/2023 09/29/20 22, 07/28/2021, 07/13/2020, Additional history exists Tetanus booster 02/28/2027 02/28/2017, 11/02/2008 Lipids for age 45-75 07/31/2027 07/31/2022, 07/13/2021, 05/21/2020, Additional history exists Colonoscopy through age 75 09/17/202709/17, 09/17/2017, 06/03/2007 (Completed outside of [facility]) Tdap Completed 02/28/2017, 11/02/2008 Pneumococcal series for age 65+ Completed 7, 02/28/2016 Zoster (shingles) series for age 50+ Completed 04/03/2019, 04/03/2019, 01/05/2019, Additional history exists Hepatitis C screening for ag e 18-79 Completed 07/13/2020 DEXA/DXA scan for age 65+ Completed 2021, 03/09/2016, 12/03/2008 Advance Directives Documents on File Type Date Recorded Patient Parachute Packer Expl anation Power of Methods Engineer 07/11/2016 10:32 AM JONI KATZ POWER OF FREIGHT BRAKE OPERATOR, [facility],06/14/2014 Healthcare Directive 07/11/2016 10:29 AM ELO DEVI, [facility], 06/14/2014 Care Teams Senior Civil Engineer Relationship Specialty Start Date End Date Beni Morales MD [address] [place] [id number] Surgery - Orthopedics 02/28/16
--- NOTE | 2023-12-18 11:30 | MM_ITS ---
Patient: CULLEN CHOW Facility:?[facility] Patient ID:?[id number] Site Patient ID:?[id number]. Site :?[id number] Study:?XRay-Breast Bilateral 3D W/CAD-12/18/2023 10:03:25 AM Ordering Physician:Sowmya Almendarez Final Report: BILATERAL SCREENING MAMMOGRAM WITH COMPUTER-AIDED DETECTION AND TOMOSYNTHESIS TECHNIQUE: CC and MLO views were obtained. These mammographic images have been obtained using full-field digital technique. These mammographic images were interpreted with the benefit of computer-aided detection. Breast Tomosynthesis was used in this interpretation. COMPARISON FILM: 09/29/22, 07/28/21, 07/13/20. FINDINGS: The breasts are almost entirely fatty. IMPRESSION: There is no radiographic evidence for malignancy. ASSESSMENT: BI-RADS Category 2: Benign RECOMMENDATION: Routine screening mammogram in 1 year. A lay language report of this examination will be provided to the patient. Edison Razo M.D. Diagnostic/Nuclear Medicine Radiologist [email or web address] ELLIE/[email or web address] R& Transcribed: 1:56 pm SP/Dictated by: Edison Razo MD @ 12/27/2023 10:43:00 AM Signed by:Daniella Razo MD @12/27/2023 2:02:55 PM (Electronic Signature)
== END 2023-12-18 11:12 | disposition home or self-care (01) ==
LOC: MAMMO 11:11
PROVIDERS: PCP Nurse Practitioner Family; Visit Provider Nurse Practitioner Family
DX: Z12.31 Encounter for screening mammogram for malignant neoplasm of breast (principal)
CPT/HCPCS: 77063; 77067

== ENCOUNTER 2023-12-28 11:15 | Outpatient (RCR) | payer MEDICARE, BC, SELFPAY ==
--- NOTE | 2023-09-24 12:24 | PT.OPEX ---
PT [facility] Out[facility] Eval PT LD Outpatient Eval Start: 09/24/23 08:15 Freq: Status: Active Protocol: Document 09/24/23 08:17 AMS (Rec: 09/24/23 12:16 AMS [id number]) E-signed By Keisha Diallo PT Physical Therapy Outpatient Evaluation Insurance Information Recert Due Date 12/18/23 Insurance Name Medicare B,Other; See Comments Insurance Information/Comments [employer] [facility] Medical Diagnosis S/p left knee replacement pre-op and post-op Left knee osteoarthritis Presence of left artificial knee joint Treating Diagnosis Left knee pain Difficulty walking Muscle weakness Aftercare following joint replacement Referring MD Bui Subjective Subjective Angela is a new patient in my office today. She is a pleasant 73yr old female. Presents with left knee pain. She reports medial and global pain in her knee for several years. She has a sense of weakness and difficulties walking without assist. She has modified her activities and tried [id number]-[id number] medications. She has never had surgery on this knee. She has successfully undergone right total knee arthroplasty around [address] Morales. She does not have diabetes, does not smoke cigarettes and is on lifelong Coumadin for factor [address] Bui, 07/25/23, confirmed by patient Patient reports with , Baldev, to PT 1 week prior to left TKA. States the pain got significantly worse this summer gradually, but has been ongoing for 10+ years and worsening. X-ray showed severe osteoarthritis of medial knee . She is scheduled for left TKA 09/[address] Bui. Hx of right knee replacement, so she feels comfortable with expectations after surgery. Pain increases with weightbearing positions, including standing, walking, and performing stairs. Patient historically has enjoyed going on walks with up to 3 miles, but has had to use a single point cane the last several months d/t pain. Otherwise, she is independent without gait aid at baseline with exception of using cane for longer distances or getting places more quickly. Enjoys Aging Backwards yoga classes and performs series of PT exercises from her son, who is a physical therapist, 3 -4x/week. No history of injury to either knee. Did try injections for right knee in 2012-, but never for the left. PMHx significant for right knee replacement in 2013 , osteopenia, hypothyroidism, and hyperlipidemia. Please see pre-op note for complete home set up. Notably, pt does not have stairs in her home to navigate. Her spouse, Baldev, is involved and present in sessions and able to care for spouse 24-7 after surgery. 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 Quad set: good. SLR: no quad lag Gait/balance: Ambulates with moderately antalgic gait on left/compensated Trendelenburg with left trunk lean, genu varum on left. Palpation/joint mobility: Tenderness to palpation over medial joint line. Swelling/observation: Mild swelling around peripatellar area. Assessment Assessment/Impression Patient is a 73 year old female presenting with spouse, Baldev, for pre-operative visit prior to left total knee arthroplasty scheduled for . Upon assessment, patient demonstrates decreased knee ROM, decreased proximal hip force output, and antalgic gait pattern. These impairments lead to difficulties with walking, standing longer periods, performing stairs, squatting, lifting, and kneeling. Pt is independent without gait aid at baseline, but requires single point cane for longer distances due to pain. PMHx significant for right TKA in 2013, chronic anticoagulation, hyperlipidemia, hypothyroidism, and osteopenia . Patient will be seen post operatively to reassess impairments that will be addressed with skilled care. Angela would greatly benefit from skilled PT in order to progress strength, ROM, and ambulation post operatively in order to perform all household and recreational activities without significant difficulty or discomfort. Primary Functional Limitations walking, standing longer periods, performing stairs, squatting, lifting, and kneeling Plan of Care Rehabilitation Potential Good Physical Therapy Goals After pre-op visit: ? Patient will be independent with HEP ? Patient will verbalize knowledge of community stair navigation and proper sequencing ? Patient will have knowledge on home adaptations and use of assistive devices post operatively ? Patient will have knowledge of edema management ALL MET Coordination/Communication With Referral Source Treatment Plan/Direct Interventions Electrical Stimulation,Gait Training,Ice/Cold/ Vasopneumatic,Joint Mobilization,Manual Therapy, Neuromuscular Re-ed,Self-Care/ Home Management,Therapeutic Activities,Therapeutic Exercises Frequency/Duration Frequency/duration: ? 1x visit prior to surgery on 10/04/23. Patient scheduled to start outpatient PT s/p TKA on 10/08/23. Has HEP to start with pre-operatively . Patient Will Be Discharged From Therapy Completion of LTG(s), Independent w/HEP, Independently Progressing Evaluation Billing Untimed Code Treatment Minutes 15 Complexity Moderate Certification Information Initial Certification Date 09/24/23 Ending Certification Date 12/18/23 Provider Signature Shows Agreement With POC & Medical Necessity Physician Signature & Date Requested Please Sign/Date Here Physician Comment/Change : Physician NPI Number #
--- NOTE | 2023-12-21 14:22 | PT.OPDNX ---
PT [facility] Daily Note PT [facility] Out[facility] Daily Note Start: 09/24/23 08:15 Freq: Status: Active Protocol: Document 12/21/23 08:53 AMS (Rec: 12/21/23 14:22 AMS [id number]) E-signed By Keisha Diallo, PT PT OP Daily Progress Note Visit Information Note Type Daily Note,Recert/Progress Note Visit Number [id number] Insurance Information Recert Due Date 03/22/24 Insurance Name Medicare B,Other; See Comments Insurance Information/Comments [facility] Diagnosis S/p left knee replacement pre-op and post-op Left knee osteoarthritis Presence of left artificial knee joint Treating Diagnosis Left knee pain Difficulty walking Muscle weakness Aftercare following joint replacement Referring MD Bui Subjective Subjective Angela is 11 weeks s/p left TKA. 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 She reports her knee has continued to improve in terms of pain, strength, and activity tolerance. She reports after doing her exercises she is pretty tired the rest of the day. She has been out walking almost a mile , which has been going well. Elevating as needed. Pain Comments 0/10 current, 0/10 best/ current 6/10, fleeting Preferred Name Angela Precautions Treatment Precautions/Contraindications Hypothyroidism, hyperlipidemia , osteopenia, hx of blood clot in R LE, and chronic anticoagulation Weight Bearing Status Weight Bear as Tolerated Home Exercise Home Exercise Comments Access Code: [email or web address] URL: [email or web address] Date: 12/21/2023 Prepared by: Keisha Diallo Program Notes Pick 3-4 strength exercises every other day. Should feel fatigued, but like you can still do the rest of your activities :)? Exercises - Standing Knee Flexion Stretch on Step - 1 x daily - 7 x weekly - 3 sets - 30-60 seconds hold - Seated Knee Extension Stretch with Chair - 1 x daily - 7 x weekly - 3 sets - 10-15 minutes hold - Standing Terminal Knee Extension with Resistance - 1 x daily - 7 x weekly - 2 sets - 10-15 reps - Standing Heel Raise with Support - 1 x daily - 4 x weekly - 2 sets - 10 reps - Forward Step Up - 1 x daily - 4 x weekly - 2 sets - 10 reps - 8 height - Supine Bridge - 1 x daily - 4 x weekly - 2 sets - 10-12 reps - 3-5 sec hold - Single Leg Stance with Support - 1 x daily - 7 x weekly - 3 sets - 30-60 seconds hold - Squat with Chair Touch - 1 x daily - 4 x weekly - 2 sets - 10 reps - 10 lbs weight - Clamshell - 1 x daily - 4 x weekly - 2 sets - 10 reps - red hold Objective Other/Pertinent Objective Knee ROM L 0-0-121 supine R 0-0-110 Gait/balance: Mild reverse Trendelenburg noted w/ left trunk lean. Otherwise normalized/non-antalgic. MMT: Knee flexion: R 5/5 L 5/5 Knee extension: R 4+/5 L 4+/5 Hip flexion: R 5/5 L 4/5 Hip abduction: R 4/5 L 4-/5 30 sec STS: 15 reps Functional Test Performed & Score LEFS: 57/64 = 89% Patient Instructed in Risks/Benefits Yes Therapeutic Exercise Therapeutic Exercise Minutes (minutes) 40 Therapeutic Exercise: To Restore Education: Functional Status -POC with review of goals and progress since start of PT -Expectations after d/c from PT and continued compliance to HEP Patient was instructed in the following exercises to improve strength, tissue tolerance, and/or mobility with verbal/ tactile cues as needed: - Recumbent bike x 5 min, L3 - Full squats with 10 lb DB, 2 x 10 reps, cues for even weight shift - Standing hip abduction machine, 2 plates, 2 x 10 reps B - Sidestepping with red TB at feet, 2 x 20' B; green band 2 x 20' - Clamshell w/ green TB, 1 x 10 reps - Step up on 6 step, 1 x 5 reps, L, light UE support - Step down on 6 step, 1 x 5 reps, R, light UE support - Step up on 8 step, 1 x 10 reps L, light UE support - Reviewed HEP/updated, answered pt questions, reassessment of objective measures Treatment Minutes Timed Code Treatment Minutes 40 Total Treatment Time 40 Billing Units Therapeutic Exercise Units 3 Assessment/Impression Assessment/Impression Angela is 11 weeks s/p left TKA. She demonstrates full and pain -free knee flexion ROM to 121 degrees and full extension. Significantly improved glute/ posterior chain strength as noted by ability to complete 8 step up without significant compensation, although fatigues quickly. Updated HEP this visit/adapted and prioritized to maximize pt's energy after completion with the rest of her daily tasks. Patient would benefit from skilled PT to address impairments stated above in order to perform all functional and recreational activities without significant difficulty or discomfort. Plan of Care Physical Therapy Goals In 4-6 visits: 1. Patient will improve knee ROM to > 100 degrees for improved ease of STS transfers . MET 2.Patient will ambulate with improved mechanics and less than 3/10 knee pain with or without AD >150' for improved household/community mobility. MET 3. Patient will perform x5 SLR with improved form and strength to improve supine<> sit transfer. MET In 12-16 visits: 1. Patient will improve knee ROM to >115 degrees in order to comfortably navigate stairs for household and community navigation. MET 2. Patient will be able to walk up to 10 minutes without use of assistive device or report of increased knee pain. MET 3. Patient will return to playing piano and doing Aging Backwards with less than 2/10 pain demonstrating improved activity tolerance. PROGRESSING 4. Pt will perform stairs reciprocally with <2/10 pain for improved ability to navigate community. PROGRESSING Daily Plan of Care Continue per POC Daily Plan of Care Comments Progress quad/hamstring strength, knee ROM, gait mechanics Stationary bike Recertification Information Initial Certification Date 09/24/23 Recertification Start Date 12/18/23 Recertification Due Date 03/22/24 Reasons to Continue Skilled Therapy Patient is a 73 year old female that presents s/p left TKA on 10/04/24. Patient reports significant improvement with skilled physical therapy services. Patient's LEFS outcome measure has improved to 89%. Patient has shown improvement in physical therapy, demonstrating decreased pain, increased range of motion, increased strength, and increased tolerance to activity and load. She has met 5 of her 7 physical therapy goals at this time. Patient continues to present with pain , decreased strength, especially of L glutes, and decreased tolerance to activity. Patient would benefit from continued skilled PT services to address these issues and to maximize function. Rehabilitation Potential Excellent Continued Plan of Care and Interventions Therapeutic exercise, therapeutic activity, neuromuscular re-education, manual therapy, gait training Provider Signature Shows Agreement With POC & Medical Necessity
== END 2024-01-07 12:49 | disposition home or self-care (01) ==
PROVIDERS: PCP Nurse Practitioner Family; Visit Provider Orthopaedic Surgery
DX: M17.12 Unilateral primary osteoarthritis, left knee (principal); Z96.652 Presence of left artificial knee joint; M25.562 Pain in left knee; M62.81 Muscle weakness (generalized); Z47.1 Aftercare following joint replacement surgery; R26.2 Difficulty in walking, not elsewhere classified; Z51.89 Encounter for other specified aftercare
CPT/HCPCS: 84443; 85610; 97110; 97112; 97116; 97140; 97162; 97164; 97530

== ENCOUNTER 2024-03-18 10:00 | Outpatient (RCR) | payer MEDICARE, BC, SELFPAY ==
--- NOTE | 2024-01-25 08:39 | PT.OPEX ---
PT [place] [facility] Eval PT [facility] Outpatient Eval Start: 01/24/24 07:59 Freq: Status: Active Protocol: Document 01/24/24 07:59 AMS (Rec: 01/24/24 16:46 AMS [id number]) E-signed By Keisha Diallo PT Physical Therapy Outpatient Evaluation Insurance Information Recert Due Date 04/18/24 Insurance Name Medicare B Medical Diagnosis Left hip bursitis Left hip deep gluteal pain syndrome Treating Diagnosis Left hip pain Muscle weakness Difficulty walking Referring MD Rick Bui MD Subjective Subjective Angela returns today after left TKA (10/04/2023). She reports buttocks symptoms that is limiting her recovery. There has not been a history of injury. Symptoms are worse after sitting and trying to climb stairs. She has modified her activities. She has not seen therapy for these symptoms. -Dr. Bui, , confirmed by patient Patient is a 73-year-old female who presents to physical therapy with primary concern of left buttock/ lateral hip pain. This started in late December about a month ago without injury. This happened more gradually. Denies low back pain for the most part, more occasional. No N/T. No history of injury. Pain characteristics: sharp pain with certain activities, dull ache at rest. Localized to left buttock/lateral hip. Aggravating factors: sitting on hard surfaces, walking up hills, stairs, sitting in the car, stepping up, bending forward, lifting, standing up after sitting. No issues with sleeping on left side. Easing factors: sitting on softer surfaces, ibuprofen/ Tylenol occasionally, rest Prior level of function: Independent without AD Previous treatments: No other treatments. Current functional limitations : sitting on hard surfaces, walking up hills, stairs, sitting in the car, stepping up, bending forward, lifting, standing up after sitting Imaging: None. PMHx: see below Social history/current exercise: Tries to go on walks , [place], so it is painful coming back to her home. This has limited her walking/exercise. No formal exercise currently except a few of the previous PT exercises that are not aggravating as well as pigeon stretch (recommended by doctor ). Lives with her , Baldev, in a house. No stairs in her home. Goals: Getting back to her walks - a mile to a mile and a half. Improved strength. Pain Comments 8/10 at worst 0/10 at rest, no issues with sleep 5/10 average Date of Last Physician Visit 01/21/24 Current Work Status Retired Precautions Treatment Precautions/Contraindications Hypothyroidism, hyperlipidemia , osteopenia, history of blood clot in R LE, hx of chronic anticoagulation Objective Other/Pertinent Objective Gait assessment: Ambulates with mild leftward trunk lean/ Reverse Trendelenburg, otherwise normalized. BALANCE Single leg stance: 8 sec on L, 17 sec on R FUNCTIONAL MOBILITY Double leg squat: To 45 degrees, mild pain w/ initial bend and upon eccentric return KNEE ROM WNL END RANGE QUAD CONTROL Straight leg raise: Independent without quad lag LUMBAR ROM Flexion: 100% Extension: 100% Right Sidebendin% Left Sidebendin% Right rotation: 100% Left rotation: 100% HIP ROM (R/L) Flexion: WNL Extension: 15/15 Internal Rotation: Mildly limited BL External Rotation: Mildly limited on L Abduction: WNL LE MMT: Hip flexion: R 4+/5 L 4/5 Hip abduction: R 4/5 L 4-/5, mild pain Hip extension: R 4-/5 L 3+/5 Knee flexion: R 5/5 L 5/5, no pain when tested at 90 deg and 30 deg Knee extension: R 5/5 L 5/5 SPECIAL TEST Hip Labral/Intra-articular Pathology: -DUSTIN: - -FADIR: - -Log Roll: - Hip impingement: -Scour test: - -[facility]: - Gluteal tendinopathy: -30-sec SLS test: - JOINT MOBILITY/PALPATION: TTP over greater trochanter, just posterior to greater trochanter over gluteals, ITB, and posterior gluteal. No TTP over lumbar spine or ischial tuberosity. Functional Test Performed & Score LEFS: 50/80 = 62.5% Assessment Assessment/Impression Pt is a 73 -year-old female who presents with concerns of subacute left hip pain and moderate severity and irritability. Signs and symptoms are likely indicating / consistent with left hip bursitis/gluteal pain. On exam , patient also demonstrates notable objective findings including mildly limited hip ROM into ER, normal lumbar exam, impaired balance, mildly altered gait, hypertonicity of left gluteals with tenderness to palpation, and decreased lateral/posterior hip and gluteal strength, leading to difficulties with sitting on hard surfaces, walking up hills, going upstairs, sitting in the car, stepping up, bending forward, lifting, and standing up after sitting. Notably, pt had left total knee replacement on and denies any ongoing knee pain. Patient is appropriate for skilled physical therapy services to address the above deficits. Pt was agreeable with plan of care and goals established. Primary Functional Limitations sitting on hard surfaces, walking up hills, going upstairs, sitting in the car, stepping up, bending forward, lifting, standing up after sitting Plan of Care Rehabilitation Potential Good Physical Therapy Goals In 2 sessions: Pt will be independent with HEP for ability to maximize progress in therapy. In 8 sessions: Pt will demonstrate ability to perform stairs reciprocally upon ascent with <2/10 pain for improved ability to navigate community. Pt will perform 10 sit to stands from standard height chair with <3/10 pain. Pt will walk >1 mile with <2/ 10 hip pain, including uphill, for improved ability to return to desired exercise/ recreational activities. Pt will improve LEFS by 9 pts or 12% for meaningful improvement in symptoms. Coordination/Communication With Referral Source Treatment Plan/Direct Interventions Gait Training,Joint Mobilization,Manual Therapy, Neuromuscular Re-ed,Self-Care/ Home Management,Therapeutic Activities,Therapeutic Exercises Frequency/Duration 1x/week for 8-10 visits Patient Will Be Discharged From Therapy Completion of LTG(s), Independent w/HEP, Independently Progressing Evaluation Billing Untimed Code Treatment Minutes 30 Complexity Low Certification Information Initial Certification Date 01/24/24 Ending Certification Date 04/18/24 Provider Signature Shows Agreement With POC & Medical Necessity Physician Signature & Date Requested Please Sign/Date Here Physician Comment/Change : Physician NPI Number #
== END 2024-07-16 23:59 | disposition home or self-care (01) ==
PROVIDERS: PCP Nurse Practitioner Family; Visit Provider Orthopaedic Surgery
DX: S76.012A Strain of muscle, fascia and tendon of left hip, initial encounter (principal); M70.72 Other bursitis of hip, left hip; Z51.89 Encounter for other specified aftercare
CPT/HCPCS: 97110; 97140; 97161

== ENCOUNTER 2024-09-17 10:53 | Outpatient (CLI) | payer MEDICARE, BC, SELFPAY ==
--- OUTSIDE RECORDS SUMMARY | 2024-09-20 18:19 | XMS_ITS | Clinical Summary ---
Author Organization [facility] Address [place], [place] [address] Care Team Providers Care Construction Administrative Assistant Name Role Phone Beni Morales MD Unavailable [phone] Allergies Active Allergy Reactions Criticality Noted Date Comments Sulfamethoxazole-Trimethoprim Rash 2008 Medications Medication Sig Dispensed Refills Start Date End Date Status triamcinolone 0.025% topical (ARISTOCORT) 0.025 % creamIndications:Rash Apply topically to affected area(s) 2 times daily. Use for 5-10 days as needed for flares. 80 g 10/18/2020 Active cholecalciferol (Vitamin D-3) 2,000 unit [...] the evening OR as directed 90 Tablet 02/21/2023 Active levothyroxine (SYNTHROID) 75 mcg tabletIndications:Hypo thyroidism, unspecified type TAKE 1 TABLET(75 MCG) BY MOUTH BEFORE BREAKFAST 90 Tablet 1 05/11/2023 Active Active Problems Problem Noted Date Diagnosed Date Osteoarthritis of left knee 08/14/2022 Obesity (BMI 30.0-34.9) 03/23/2017 Factor 5 Leiden mutation, heterozygous 2 Overview (03/23/2017): DVT x 2, most recently 2009 Hemtatology consult 2010 Osteopenia of multiple sites 06/23/2011 Overview (08/14/2022): DEXA 2021 osteopenia Deep vein thrombophlebitis of right leg 03/30/20 10 Overview (03/23/2017): Factor V leiden heterozygous DVT x 2, most recently 2009 Hemtatology consult 2010 Other and unspecified hyperlipidemia 07/12/2007 healthcare maintenance 06/04/2007 Overview (09/18/2017): Colonoscopy 05/11 - repeat in 10 years [...] Outcome GA Total Labor Labor/2nd/3rd Weight Sex Type Anes PTL Tonya A1 A5 Name Clin Term Term Last Filed Vital Signs Vital [...] Health Maintenance Due Date Last Done Comments BMI (ht and wt on same day) for age 18+ 08/10/2023 08/10/2022, 07/28/2021, 06/16/2020, Additional history exists Depression screening for age 12+ 08/10/2023 08/10/2022, 07/28/2021, 06/16/2020, Additional history exists Medicare Wellness for age 65+ 08/11/2023, 07/28/2021, 06/16/2020, Additional history exists Mammogram for age 45-75 09/29/2023 09/29/20 22, 07/28/2021, 07/13/2020, Additional history exists COVID-19 vaccine series ( season) 2024 09/14/2021, 02/03/2021, 01/06/2021 Influenza for age 65+ 07/06/2024 08/10/2022 , 08/18/2020, 07/17/2019, Additional history exists Tetanus booster 02/28/2027 02/28/2017, 11/02/2008 Lipids for age 45-75 07/31/2027 07/31/2022, 07/13/2021, 05/21/2020, Additional history exists Colonoscopy through age 75 09/17/202709/17, 09/17/2017, 06/03/2007 (Completed outside of [facility]) Tdap Completed 02/28/2017, 11/02/2008 Pneumococcal series for age 65+ Completed 7, 02/28/2016 Zoster (shingles) series for age 50+ Completed 04/03/2019, 04/03/2019, 01/05/2019, Additional history exists Hepatitis C screening for ag e 18-79 Completed 07/13/2020 DEXA/DXA scan for age 65+ Completed 2021, 03/09/2016, 12/03/2008 Procedures Procedure Name Priority Date/Time Associated Diagnosis Comments XR MAMMO BILAT SCREENING Routine 09/29/2022 2:55 PM GLASS WASHER Visit for screening mammogram LIPID PANEL W REFLEX MEASURED LDL Routine 07/31/2022 9:41 AM CDT Hyperlipidemia, unspecified hyperlipidemia type XR DXA BONE DENSITY 2 SITES AXIAL Routine 12/29/2021 11:05 AM GLASS WASHER Menopause ANTI HCV Routine 07/13/2020 1:22 PM CDT Need for hepatitis C screening test SCAN-COLONOSCOPY 09/17/2017 12:0 0 AM GLASS WASHER from Last 3 Months or Most Recently Relevant to Health Maintenance Results * XR MAMMO BILAT SCREENING (09/29/2022 2:55 PM GLASS WASHER) Anatomical Region Laterality Modality BREASTS, Breast Left, Breast Right Bilateral Mammography Impressions 10/03/2022 3:21 PM GLASS WASHER ??There is no radiographic evidence for malignancy. ??Recommend annual mammograms. MAMMOGRAM ASSESSMENT: ??ACR 1 Negative PATIENTS: You will also receive a letter with your examination results in an easy to read format. ??If you have questions about your results, please contact your referring provider. Narrative 10/03/2022 3:21 PM GLASS WASHER For Patients: As a result of the 21st Century Cures Act, medical imaging exams and procedure reports are released immediately into your electronic medical record. You may view this report before your referring provider. If you have questions, please contact your health care provider. XR MAMMO BILAT SCREENING [[id number]] CLINICAL HISTORY: ??This is an asymptomatic 72 y.o. patient. INDICATION FOR EXAM: Mammogram Screening. TECHNIQUE: CC & MLO views were obtained. ??This study was evaluated with the assistance of Computer-Aided Detection. COMPARISON FILM: Yes [facility]28[facility]21 [facility] 07[facility]20 [facility] FINDINGS: ??The breasts are almost entirely fatty. There are no dominant masses, suspicious micro calcifications or areas of architectural distortion. Ave Soriano MD MAMMO * LIPID PANEL W REFLEX MEASURED LDL (07/31/2022 9:41 AM CDT) CHOLESTEROL,TOTAL 185 100 - 199 mg/dL 07/31/2022 6:46 PM CDT [facility] TRIGLYCERIDES 100 <150 mg/dL 07/31/2022 6:46 PM CDT [facility] HDL CHOLESTEROL 43 >40 mg/dL 6:46 PM CDT [facility] NON-HDL CHOLESTEROL 142 <145 mg/dl 07/31/2022 6:46 PM CDT [facility] CHOL/HDL RATIO 4.30 <4.50 07/31/2022 6:46 PM CDT [facility] LDL CHOLESTEROL 122 <=130 mg/dL 07/31/2022 6:46 PM CDT [facility] VLDL CHOLESTEROL 20 <=30 mg/dL 07/31/2022 6:46 PM CDT [facility] PROVIDER ORDERED STATUS RANDOM 07/31/2022 6:46 PM CDT [facility] Blood BLOOD SPECIMEN / Unknown Venipuncture / Unknown 07/31/2022 9:41 AM CDT 07/31/2022 9:[address] Soriano MD [facility]Y [facility] [address] [place] [address], * (ABNORMAL) XR DXA BONE DENSITY 2 SITES AXIAL (12/29/2021 11:05 AM GLASS WASHER) Anatomical Region Laterality Modality Spine, HIPS, HIPL, HIPR Other Impressions 12/30/2021 10:23 AM GLASS WASHER Osteopenia. RECOMMENDATIONS: The National Osteoporosis Foundation recommends pharmacologic treatment for patients with T-scores of -2.5 or less, patients with prior history of fragility fractures, or patients with 10-year probability of greater than 3% at hips or greater than 20% of suffering major osteoporotic fractures. Recommend continued optimization of calcium and vitamin D intake through dietary means and/or supplementation and regular exercise. Repeat scan recommended in 3-5 years. Sherrill Vargas PA-C Narrative 12/30/2021 10:23 AM GLASS WASHER For Patients: Results are automatically released to your [facility] account once available, in compliance with federal regulations. This means that you may see your results before your provider has had a chance to review them. Please allow 2-3 business days for your provider to comment on the results. XR DXA Bone Mineral Density (BMD) EXAM LOCATION: [address] [address] PATIENT NAME: Birdie Canales DATE OF : 1950 EXAM DATE: 12/29/2021 REQUESTING PROVIDER: Ave Soriano MD GENDER AT : female HEIGHT: 5' 4.69 (07/28/2021) WEIGHT: ??195 lb 9.6 oz (07/28/2021) MENOPAUSAL STATUS: Postmenopausal RACE/ETHNICITY: White RISK FACTORS: Family History of Osteoporosis and White Race CURRENT MEDICATION FOR BONE LOSS: NONE INDICATION: Menopause COMPARISON DATE(S): 2016 DXA scans are compared to prior studies for a patient only when the two (or more) studies were performed on the same scanner. It is not possible to compare data generated on one scanner to data from another because there are not standards in DXA equipment. This applies even if the two scanners are made by the same pillowcase turner. PROCEDURE: Dual-energy x-ray absorptiometry performed with routine technique. Reporting is completed in the form of a T-score. The T-score represents the standard deviation from peak bone mass based on young healthy adult. A Z-score is used for diagnosis in premenopausal women, and for men under the age of 50. FINDINGS: RESULT LUMBAR SPINE L1 - L4 BMD: 1.157 g/cm2 T-Score: - 0.2 Z-Score: + 0.7 Change from prior in 2016: ??Decrease 1.3%. RESULTS FEMUR Left femoral neck BMD: 0.805 g/cm2 T-Score: - 1.7 Z-Score: - 0.5 Change from prior in 2016: ??Decrease 7.4%. Right femoral neck BMD: 0.859 g/cm2 T-Score: - 1.3 Z-Score: - 0.1 Change from prior in 2016: ??Increase 2.1%. Left hip BMD: 0.943 g/cm2 T-Score: - 0.5 Z-Score: + 0.4 Change from prior in 2016: ??Decrease 8.4%. Right hip BMD: 1.014 g/cm2 T-Score: + 0.1 Z-Score: + 1.0 Change from prior in 2016: ??Increase 4.6%. WHO criteria: Normal: T-score at or above -1 SD Osteopenia: T-score between -1.1 and -2.4 SD Osteoporosis: T-score at or below -2.5 SD FRAX RISK CALCULATION (USED FOR OSTEOPENIA ONLY): 10-year probability of major osteoporotic fracture: 10.1%. 10-year probability of hip fracture: 1.6%. Ave Soriano MD DEXA * ANTI HCV (07/13/2020 1:22 PM CDT) HEPATITIS C ANTIBODY Non-React alex Non-React alex 07/13/2020 10:35 PM CDT [facility] Comment:Antibodies to HCV no t detected; does not exclude the possibility of exposure to HCV. Blood BLOOD SPECIMEN / Unknown Venipuncture / Unknown 07/13/2020 1:22 PM CDT 07/13/2020 1:[address] Soriano MD SEND OUTS [email or web address] [address] [place] [address], * SCAN-COLONOSCOPY (09/17/2017 12:00 AM GLASS WASHER) Scanner OTHER from Last 3 Months or Most Recently Relevant to Health Maintenance Advance Directives Documents on File Type Date Recorded Patient Right Of Way Manager Expl anation Power of Tubing Tester 07/11/2016 10:32 AM JONI KATZ POWER OF COLD WORKING SUPERVISOR, [facility],06/14/2014 Healthcare Directive 07/11/2016 10:29 AM ELO DEVI, [facility], 06/14/2014 Care Teams Construction Administrative Assistant Relationship Specialty Start Date End Date Beni Morales MD [address] [place] [id number] Surgery - Orthopedics 02/28/16
== END 2024-09-17 10:54 | disposition home or self-care (01) ==
LOC: NFLDREF 09-20 18:17
PROVIDERS: PCP Nurse Practitioner Family; Referring Provider Nurse Practitioner Family; Visit Provider Nurse Practitioner Family
DX: Z79.01 Long term (current) use of anticoagulants (principal)
CPT/HCPCS: 85610

== ENCOUNTER 2024-10-08 10:18 | Outpatient (CLI) | payer MEDICARE, BC, SELFPAY ==
--- OUTSIDE RECORDS SUMMARY | 2024-10-08 10:22 | XMS_ITS | Clinical Summary ---
Author Organization [employer] [facility] [employer] [facility] Address [place], [place] [address] Care Team Providers Care Machine Clothing Worker Name Role Phone Beni Morales MD Unavailable [phone] Allergies Active Allergy Reactions Criticality Noted Date [...] 71 08/10/2022 3:04 PM CDT Temperature 36.9 C (98.4 F) 11/13/2019 1:55 PM INTEGRATION DIRECTOR Respiratory Rate - - Oxygen Saturation 98% [...] 76 09/17/202709/17, 09/17/2017, 06/03/2007 (Completed outside of [facility] [place]) Tdap Completed 02/28/2017, 11/02/2008 Pneumococcal series for age 65+ Completed 7, 02/28/2016 Zoster (shingles) series for age 50+ Completed 04/03/2019, 04/03/2019, 01/05/2019, Additional history exists Hepatitis C screening for ag e 18-79 Completed 07/13/2020 DEXA/DXA scan for age 65+ Completed 2021, 03/09/2016, 12/03/2008 Procedures Procedure Name Priority Date/Time Associated Diagnosis Comments XR MAMMO BILAT SCREENING Routine 09/29/2022 2:55 PM INTEGRATION DIRECTOR Visit for screening mammogram LIPID PANEL W REFLEX MEASURED LDL Routine 07/31/2022 9:41 AM CDT Hyperlipidemia, unspecified hyperlipidemia type XR DXA BONE DENSITY 2 SITES AXIAL Routine 12/29/2021 11:05 AM INTEGRATION DIRECTOR Menopause ANTI HCV Routine 07/13/2020 1:22 PM CDT Need for hepatitis C screening test SCAN-COLONOSCOPY 09/17/2017 12:0 0 AM INTEGRATION DIRECTOR from Last 3 Months or Most Recently Relevant to Health Maintenance Results * XR MAMMO BILAT SCREENING (09/29/2022 2:55 PM INTEGRATION DIRECTOR) Anatomical Region Laterality Modality BREASTS, Breast Left, Breast Right Bilateral Mammography Impressions 10/03/2022 3:21 PM INTEGRATION DIRECTOR There is no radiographic evidence for malignancy. Recommend annual mammograms. MAMMOGRAM ASSESSMENT: ACR 1 Negative PATIENTS: You will also receive a letter with your examination results in an easy to read format. If you have questions about your results, please contact your referring provider. Narrative 10/03/2022 3:21 PM INTEGRATION DIRECTOR For Patients: As a result of the Century Cures Act, medical imaging exams and procedure reports are released immediately into your electronic medical record. You may view this report before your referring provider. If you have questions, please contact your health care provider. XR MAMMO BILAT SCREENING [[id number]] CLINICAL HISTORY: This is an asymptomatic 72 y.o. patient. INDICATION FOR EXAM: Mammogram Screening. TECHNIQUE: CC & MLO views were obtained. This study was evaluated with the assistance of Computer-Aided Detection. COMPARISON FILM: Yes 07/28/21 [place] 07/13/20 [place] FINDINGS: The breasts are almost entirely fatty. There are no dominant masses, suspicious micro calcifications or areas of architectural distortion. Ave Soriano MD MAMMO * LIPID PANEL W REFLEX MEASURED LDL (07/31/2022 9:41 AM CDT) CHOLESTEROL,TOTAL 185 100 - 199 mg/dL 07/31/2022 6:46 PM CDT [facility] TRIGLYCERIDES 100 <150 mg/dL 07/31/2022 6:46 PM CDT [facility] HDL CHOLESTEROL 43 >40 mg/dL 6:46 PM CDT [facility] NON-HDL CHOLESTEROL 142 <145 mg/dl 07/31/2022 6:46 PM CDT [facility] CHOL/HDL RATIO 4.30 <4.50 07/31/2022 6:46 PM CDT [facility] LDL CHOLESTEROL 122 <=130 mg/dL 07/31/2022 6:46 PM CDT [facility] VLDL CHOLESTEROL 20 <=30 mg/dL 07/31/2022 6:46 PM CDT [facility] PROVIDER ORDERED STATUS RANDOM 07/31/2022 6:46 PM CDT [facility] Blood BLOOD SPECIMEN / Unknown Venipuncture / Unknown 07/31/2022 9:41 AM CDT 07/31/2022 9:[address] Soriano MD CHEMISTRY [facility] [address] [place] [address], [place] * (ABNORMAL) XR DXA BONE DENSITY 2 SITES AXIAL (12/29/2021 11:05 AM INTEGRATION DIRECTOR) Anatomical Region Laterality Modality Spine, HIPS, HIPL, HIPR Other Impressions 12/30/2021 10:23 AM INTEGRATION DIRECTOR Osteopenia. RECOMMENDATIONS: The National Osteoporosis Foundation recommends [...] exercise. Repeat scan recommended in 3-5 years. Sherrillbee Penaniteshlaw KURT Narrative 12/30/2021 10:23 AM INTEGRATION DIRECTOR For Patients: Results are automatically released to your [facility] account once available, in compliance with federal regulations. This means that you may see your results before your provider has had a chance to review them. Please allow 2-3 business days for your provider to comment on the results. XR DXA Bone Mineral Density (BMD) EXAM LOCATION: [address] [address] PATIENT NAME: Birdie Canales DATE OF : 1950 EXAM DATE: 12/29/2021 REQUESTING PROVIDER: Ave Soriano MD GENDER AT : female HEIGHT: 5' 4.69 (07/28/2021) WEIGHT: 195 lb 9.6 oz (07/28/2021) MENOPAUSAL STATUS: Postmenopausal RACE/ETHNICITY: White RISK FACTORS: Family History of Osteoporosis and White Race CURRENT MEDICATION FOR BONE LOSS: NONE INDICATION: Menopause COMPARISON DATE(S): 2015 DXA scans are compared to prior studies for a patient only when the two (or more) studies were performed on the same scanner. It is not possible to compare data generated on one scanner to data from another because there are not standards in DXA equipment. This applies even if the two scanners are made by the same electronic device repairer. PROCEDURE: Dual-energy x-ray absorptiometry performed with routine [...] + 0.7 Change from prior in 2016: Decrease 1.3%. RESULTS FEMUR Left femoral neck BMD: 0.805 g/cm2 T-Score: - 1.7 Z-Score: - 0.5 Change from prior in 2016: Decrease 7.4%. Right femoral neck BMD: 0.859 g/cm2 T-Score: - 1.3 Z-Score: - 0.1 Change from prior in 2016: Increase 2.1%. Left hip BMD: 0.943 g/cm2 T-Score: - 0.5 Z-Score: + 0.4 Change from prior in 2016: Decrease 8.4%. Right hip BMD: 1.014 g/cm2 T-Score: + 0.1 Z-Score: + 1.0 Change from prior in 2016: Increase 4.6%. WHO criteria: Normal: T-score at or above -1 SD Osteopenia: T-score between -1.1 and -2.4 SD Osteoporosis: T-score at or below -2.5 SD FRAX RISK CALCULATION (USED FOR OSTEOPENIA ONLY): 10-year probability of major osteoporotic fracture: 10.1%. 10-year probability of hip fracture: 1.6%. Ave Soriano MD DEXA * ANTI HCV (07/13/2020 1:22 PM CDT) Pathologist [facility] [place] HEPATITIS C ANTIBODY Non-React alex Non-React alex 07/13/2020 10:35 PM CDT [facility] Comment:Antibodies to HCV no t detected; does not exclude the possibility of exposure to HCV. Blood BLOOD SPECIMEN / Unknown Venipuncture / Unknown 07/13/2020 1:22 PM CDT 07/13/2020 1:[address] Soriano MD SEND OUTS [facility] 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
== END 2024-10-08 10:19 | disposition home or self-care (01) ==
LOC: LKVREF 10:20
PROVIDERS: PCP Nurse Practitioner Family; Visit Provider Nurse Practitioner Family
DX: E78.5 Hyperlipidemia, unspecified (principal); E03.9 Hypothyroidism, unspecified
CPT/HCPCS: 80053; 80061; 84443

== ENCOUNTER 2024-12-19 10:44 | Outpatient (CLI) | payer MEDICARE, BC, SELFPAY | END 2024-12-19 10:45 | disposition home or self-care (01) | LOC: NFLDREF 12-20 03:22 | PROVIDERS: PCP Nurse Practitioner Family; Referring Provider Nurse Practitioner Family; Visit Provider Nurse Practitioner Family | DX: Z79.01 Long term (current) use of anticoagulants (principal); D68.51 Activated protein C resistance; Z51.81 Encounter for therapeutic drug level monitoring | CPT/HCPCS: 85610 ==

== ENCOUNTER 2025-02-24 14:15 | Outpatient (CLI) | payer MEDICARE, BC, SELFPAY ==
--- NOTE | 2025-02-24 14:40 | CRLHL7_ITS ---
For Patients: As a result of the Century Cures Act, medical imaging exams and procedure reports are released immediately into your electronic medical record. You may view this report before your referring provider. If you have questions, please contact your health care provider. INDICATION: BILATERAL SCREENING MAMMOGRAM, ASYMPTOMATIAC 74F COMPARISON: 12/18/23, 09/29/22, 07/28/21 TECHNIQUE: CC and MLO views were obtained. These mammographic images have been obtained using full-field digital technique. These mammographic images were interpreted with the benefit of computer aided detection and tomosynthesis. BREAST COMPOSITION: The breasts are almost entirely fatty. FINDINGS: No suspicious findings. ASSESSMENT: BI-RADS 2 Benign RECOMMENDATION: Annual screening mammogram. A lay language report of this examination will be provided to the patient. Dictated by: Holden Tejada MD @ 02/26/2025 12:57:05 (Electronically Signed)
== END 2025-02-24 14:16 | disposition home or self-care (01) ==
LOC: MAMMO 14:16
PROVIDERS: PCP Nurse Practitioner Family; Visit Provider Nurse Practitioner Family
DX: Z12.31 Encounter for screening mammogram for malignant neoplasm of breast (principal); Z79.01 Long term (current) use of anticoagulants
CPT/HCPCS: 77063; 77067; 85610

== ENCOUNTER 2025-08-19 10:11 | Outpatient (CLI) | payer MEDICARE, BC, SELFPAY | END 2025-08-19 10:12 | disposition home or self-care (01) | LOC: NFLDREF 08-21 10:56 | PROVIDERS: PCP Nurse Practitioner Family; Referring Provider Nurse Practitioner Family; Visit Provider Nurse Practitioner Family | DX: Z51.81 Encounter for therapeutic drug level monitoring (principal); Z79.01 Long term (current) use of anticoagulants | CPT/HCPCS: 85610 ==

== ENCOUNTER 2025-10-14 10:24 | Outpatient (CLI) | payer MEDICARE, BC, SELFPAY | END 2025-10-14 10:25 | disposition home or self-care (01) | PROVIDERS: PCP Nurse Practitioner Family; Visit Provider Nurse Practitioner Family | DX: E78.2 Mixed hyperlipidemia (principal); R03.0 Elevated blood-pressure reading, without diagnosis of hypertension; E03.9 Hypothyroidism, unspecified | CPT/HCPCS: 80053; 80061; 84443 ==